=== PATIENT | female | born 1975 | race Caucasian/White ===

== ENCOUNTER 2019-03-30 10:40 | Emergency (ER) | payer OTHER ==
--- NOTE | 2019-03-30 11:47 | ED ---
Throat Pain/Nasal Congestion - HPI Summary HPI Summary: Patient is a 43-year-old female who presents emergency department for sinus congestion that started this morning. Patient states she has a history of sinus infections and allergies. Patient states she took Sudafed and Excedrin without improvement of pain so she presented to the ER. Patient denies fever, chills, cough, sore throat, abdominal pain, vomiting, diarrhea. Patient states she has tried antihistamines in the past but states that did not work. Symptoms are mild in severity. No current modifying factors. - History of Current Complaint Chief Complaint: EDHeadache Time Seen by Provider: 03/30/19 11:27 Hx Obtained From: Patient - Allergies/Home Medications Allergies/Adverse Reactions: Allergies Allergy/AdvReac Type Severity Reaction Status Date / Time No Known Allergies Allergy Verified 03/30/19 11:33 PMH/Surg Hx/FS Hx/Imm Hx Previously Healthy: Yes Endocrine/Hematology History: Denies: Hx Diabetes, Hx Thyroid Disease Cardiovascular History: Denies: Hx Hypercholesterolemia, Hx Hypertension, Hx Peripheral Vascular Disease Musculoskeletal History: Denies: Hx Arthritis, Hx Osteoporosis Sensory History: Denies: Hx Cataracts, Hx Contacts or Glasses, Hx Glaucoma Opthamlomology History: Denies: Hx Cataracts, Hx Contacts or Glasses, Hx Glaucoma Neurological History: Denies: Hx Headaches, Hx Seizures, Hx Transient Ischemic Attacks (TIA) Psychiatric History: Denies: Hx Anxiety, Hx Depression - Surgical History Surgery Procedure, Year, and Place: 2001. Appendix removal 2009. tubal ligation 2001 Infectious Disease History: No Infectious Disease History: Denies: History Other Infectious Disease, Traveled Outside the [place] in Last 30 Days - Family History Known Family History: Positive: Unknown, Non-Contributory - Social History Occupation: Unemployed Lives: With Family Alcohol Use: None Hx Substance Use: No Substance Use Type: Reports: None Hx Tobacco Use: No Smoking Status (MU): Never Smoked Tobacco Review of Systems Constitutional: Negative Negative: Fever, Chills Eyes: Negative Positive: Nasal Discharge. Negative: Dental Pain, Sore Throat, Ear Ache Cardiovascular: Negative Respiratory: Negative Negative: Shortness Of Breath, Cough Gastrointestinal: Negative Negative: Abdominal Pain, Vomiting, Diarrhea Positive: Headache. Negative: Weakness, Paresthesia, Numbness, Syncope All Other Systems Reviewed And Are Negative: Yes Physical Exam Triage Information Reviewed: Yes Vital Signs On Initial Exam: Initial Vitals Temp Pulse Resp BP Pulse Ox 98.6 F 70 16 121/79 98 03/30/19 10:47 03/30/19 10:47 03/30/19 10:47 03/30/19 10:47 03/30/19 10:47 Vital Signs Reviewed: Yes Appearance: Positive: Well-Appearing - Pt. sitting on bed in NAD. Watching TV. Skin: Positive: Warm, Dry Head/Face: Positive: Normal Head/Face Inspection Eyes: Positive: Normal, EOMI, RODNEY, Conjunctiva Clear ENT: Positive: Pharynx normal, TMs normal, Sinus tenderness - Mild diffusely Neck: Positive: Supple, Nontender. Negative: No Lymphadenopathy, Nuchal Rigidity Respiratory/Lung Sounds: Positive: Clear to Auscultation, Breath Sounds Present Cardiovascular: Positive: Normal, RRR Neurological: Positive: Normal, CN Intact II-III Psychiatric: Positive: Affect/Mood Appropriate Diagnostics - Vital Signs Vital Signs Temp Pulse Resp BP Pulse Ox 03/30/19 10:47 98.6 F 70 16 121/79 98 - Laboratory Lab Statement: Any lab studies that have been ordered have been reviewed, and results considered in the medical decision making process. EENT Course/Dx - Course Course Of Treatment: Pt. presenting with sinus congestion x 1 days. Will treat with flonose. Can continue sudafed as directed. TO f.u with pcp if sxs persist. Pt. understands and agrees with plan. - Differential Diagnoses Differential Diagnoses: Allergic Rhinitis, Influenza, Sinusitis - Diagnoses Provider Diagnoses: Allergic rhinitis Discharge - Sign-Out/Discharge Documenting (check all that apply): Patient Departure Patient Received Moderate/Deep Sedation with Procedure: No - Discharge Plan Condition: Good Disposition: HOME Prescriptions: Fluticasone NASAL SPRAY 50MCG* [Flonase NASAL SPRAY 50MCG*] 2 spray BOTH NARES DAILY #1 btl Patient Education Materials: Allergic Rhinitis (ED) Referrals: [facility] [Outside] Additional Instructions: Follow up with the [facility] Use flonase as directed Can continue sudafed as directed Can take Ibuprofen for pain as directed Return to ER if symptoms change or worsen - Billing Disposition and Condition Condition: GOOD Disposition: Home
[2019-03-30 11:58] VITALS: BP 123/69
== END 2019-03-30 11:58 | disposition home or self-care (01) ==
LOC: ED 10:40
DX: J30.9 Allergic rhinitis, unspecified (principal)
CPT/HCPCS: 99282

== ENCOUNTER 2020-01-05 08:04 | Emergency (ER) | payer OTHER ==
[2020-01-05] MEDS ORDERED: Ketorolac *IM* INJ* 60 MG/2 ML VIAL IM ONE (08:28)
[2020-01-05 09:54] VITALS: BP 117/64
--- NOTE | 2020-01-05 10:17 | ED ---
Back Pain - HPI Summary HPI Summary: This patient is an otherwise healthy 44-year-old female presenting with the chief complaint of tailbone pain 1 week. Patient states she fell on top of some condiments that fell out of the refrigerator. She landed directly on one of the bottles. She is endorsing pain to the tailbone without pain otherwise to the legs or to the low back. She has been taking Tylenol and ibuprofen for the past week with minimal relief. She continues to be ambulatory. Denies any numbness or tingling throughout the bilateral lower extremities. Denies any worsening pain with palpation, or rotation at the hips. Denies any worsening pain with flexion or extension at the hips. Patient states it is a "deep ache" which is always present and worse with lying flat or going from standing to sitting or sitting to lying down. She is most comfortable laying on her side. She has been denying any fevers, syncopal episodes, denies hitting her head or LOC. - History of Current Complaint Chief Complaint: EDBackInjuryPain Stated Complaint: LOW BACK INJ PER PT Time Seen by Provider: 01/05/20 08:18 Hx Obtained From: Patient Hx Last Menstrual Period: 04/05/16 Onset/Duration: Sudden Onset Onset/Duration: Started Days Ago Timing: Constant Back Pain Location: Is Discrete @ - tailbone pain Severity Initially: Moderate Severity Currently: Mild Pain Intensity: 0 Pain Scale Used: 0-10 Numeric Character: Aching Aggravating Symptom(s): Movement, Lifting, Bending Alleviating Symptom(s): Rest, Position Associated Signs And Symptoms: Negative: Swelling, Redness, Bruising, Weakness, Numbness, Bladder Incontinence, Bowel Incontinence, Weight Loss, Pain with Weight Bearing - Allergies/Home Medications Allergies/Adverse Reactions: Allergies Allergy/AdvReac Type Severity Reaction Status Date / Time No Known Allergies Allergy Verified 03/30/19 11:33 PMH/Surg Hx/FS Hx/Imm Hx Previously Healthy: Yes Endocrine/Hematology History: Denies: Hx Diabetes, Hx Thyroid Disease Cardiovascular History: Denies: Hx Hypercholesterolemia, Hx Hypertension, Hx Peripheral Vascular Disease Musculoskeletal History: Denies: Hx Arthritis, Hx Osteoporosis Sensory History: Denies: Hx Cataracts, Hx Contacts or Glasses, Hx Glaucoma Opthamlomology History: Denies: Hx Cataracts, Hx Contacts or Glasses, Hx Glaucoma Neurological History: Denies: Hx Headaches, Hx Seizures, Hx Transient Ischemic Attacks (TIA) Psychiatric History: Denies: Hx Anxiety, Hx Depression - Surgical History Surgery Procedure, Year, and Place: 2001. Appendix removal 2009. tubal ligation 2001 - Immunization History Hx Pertussis Vaccination: No Immunizations Up to Date: Yes Infectious Disease History: No Infectious Disease History: Denies: History Other Infectious Disease, Traveled Outside the [place] in Last 30 Days - Family History Known Family History: Positive: Unknown, Non-Contributory - Social History Occupation: Employed Full-time Lives: With Family Alcohol Use: None Hx Substance Use: No Substance Use Type: Reports: None Hx Tobacco Use: No Smoking Status (MU): Never Smoked Tobacco Review of Systems Negative: Fever, Chills, Fatigue, Skin Diaphoresis Negative: Palpitations, Chest Pain Negative: Shortness Of Breath, Cough Genitourinary: Negative Positive: no symptoms reported, see HPI Positive: Arthralgia - pain to the coccyx/sacral area Skin: Negative Negative: Rash, Bruising Neurological/Mental Status: Negative Negative: Weakness, Paresthesia, Numbness, Syncope All Other Systems Reviewed And Are Negative: Yes Physical Exam Triage Information Reviewed: Yes Vital Signs On Initial Exam: Initial Vitals Temp Pulse Resp BP Pulse Ox 98.5 F 117 18 130/94 97 01/05/20 08:05 01/05/20 08:05 01/05/20 08:05 01/05/20 08:05 01/05/20 08:05 Vital Signs Reviewed: Yes Appearance: Positive: Well-Appearing, Well-Nourished Skin: Positive: Warm, Skin Color Reflects Adequate Perfusion Head/Face: Positive: Normal Head/Face Inspection Eyes: Positive: EOMI, RODNEY, Conjunctiva Clear Neck: Positive: Supple, Nontender, No Lymphadenopathy Respiratory/Lung Sounds: Positive: Clear to Auscultation, Breath Sounds Present Cardiovascular: Positive: RRR, Pulses are Symmetrical in both Upper and Lower Extremities Musculoskeletal: Positive: Pain @ - sacrum Neurological: Positive: Speech Normal Psychiatric: Positive: Normal, Affect/Mood Appropriate AVPU Assessment: Alert Procedures - Sedation Patient Received Moderate/Deep Sedation with Procedure: No Diagnostics - Vital Signs Vital Signs Temp Pulse Resp BP Pulse Ox 01/05/20 09:52 98.1 F 75 14 117/64 99 01/05/20 08:05 98.5 F 117 18 130/94 97 - Laboratory Lab Statement: Any lab studies that have been ordered have been reviewed, and results considered in the medical decision making process. Back Pain Course/Dx - Course Course Of Treatment: On physical examination there is no ecchymosis noted. No signs of trauma to the low back or to the tailbone. She has no worsening pain on palpation to the area, however is endorsing an 2/10 pain to the tailbone, not worse with palpation. She is lying comfortably on her side. She states when she attempts to stand, her pain is rated 9/10. Patient remains ambulatory. An x-ray was obtained:IMPRESSION: Question of fracture of the last sacral segment. Patient was given Toradol with some relief. She was prescribed Toradol as well as tramadol for for pain relief. She will follow up with orthopedics. Continues to deny any numbness, tingling, bladder or bowel dysfunction or other back pain. Patient is stable for discharge and remains ambulatory. - Diagnoses Differential Diagnosis/HQI/PQRI: Positive: Strain, Sprain Provider Diagnoses: Sacral fracture Discharge ED - Sign-Out/Discharge Documenting (check all that apply): Patient Departure - Discharge Plan Condition: Stable Disposition: HOME Prescriptions: Ketorolac TAB * [Toradol TAB *] 10 mg PO Q6H #16 tab traMADol TAB* [Ultram*] 50 mg PO Q8H PRN #15 tab MDD 3 PRN Reason: Pain Patient Education Materials: Sacral Fracture (ED) Forms: *Work Release Referrals: Lilibeth Araujo MD [Medical Doctor] - Liu King MD [Primary Care Provider] - Additional Instructions: Toradol four times daily for pain Tramadol up to three times daily for pain not well controlled Please follow up with orthopedist for re-evaluation Tylenol may be used intermittently Heat to the area as much as possible - Billing Disposition and Condition Condition: STABLE Disposition: Home - Attestation Statements Provider Attestation: I was available for consult. This patient was seen by the [facility]. The patient was not presented to, seen by, or examined by me. Angelo Adair MD
== END 2020-01-05 09:52 | disposition home or self-care (01) ==
LOC: ED 08:04
DX: S39.92XA Unspecified injury of lower back, initial encounter (principal); W18.30XA Fall on same level, unspecified, initial encounter; Y92.9 Unspecified place or not applicable
CPT/HCPCS: 72220; 96372; 99282; J1885